=== PATIENT | female | born 1975 | race Caucasian/White ===

== ENCOUNTER 2020-03-09 23:48 | Emergency (ER) | payer BC ==
[~2020-03-09] VITALS: Ht 152.4 cm; Wt 50.0 kg
[2020-03-09 23:51] VITALS: BP 141/88
[2020-03-10] MEDS ORDERED: rabies vaccine (PCEC)/PF 2.5 unit kit IMVAC ONE (00:55)
== END 2020-03-10 01:10 | disposition home or self-care (01) ==
LOC: ER 23:49
DX: S61.230A Puncture wound without foreign body of right index finger without damage to nail, initial encounter (principal); S61.251A Open bite of left index finger without damage to nail, initial encounter; E03.9 Hypothyroidism, unspecified; W55.01XA Bitten by cat, initial encounter; Y93.89 Activity, other specified; Y92.89 Other specified places as the place of occurrence of the external cause; Y99.8 Other external cause status
CPT/HCPCS: 90471; 90675; 99283

== ENCOUNTER 2023-11-30 11:53 | Emergency (ER) | payer BC ==
[~2023-11-30] VITALS: Ht 152.4 cm; Wt 50.9 kg
[2023-11-30 11:58] VITALS: BP 160/98; PULSE 102; RESP 18; TEMP 97.2; O2SAT 99
[2023-11-30 13:54] LABS: URINE HCG NEGATIVE (NEG)
[2023-11-30] MEDS ORDERED: PER5325T PO (14:46)
[2023-11-30] MEDS ORDERED: ONDA4TAB12 PO (14:46)
[2023-11-30] MEDS: triamcinolone acetonide 40mg/ml inj IM ONE (14:51)
== END 2023-11-30 14:59 | disposition home or self-care (01) ==
LOC: ER 11:54
DX: S32.028A Other fracture of second lumbar vertebra, initial encounter for closed fracture (principal); W10.9XXA Fall (on) (from) unspecified stairs and steps, initial encounter; Y93.89 Activity, other specified; Y92.89 Other specified places as the place of occurrence of the external cause; Y99.8 Other external cause status
CPT/HCPCS: 72131; 81025; 96372; 99285; J3301